=== PATIENT | female | born 1985 | race Caucasian/White ===

== ENCOUNTER 2020-01-18 08:00 | Outpatient (CLI) | payer OTHER | END 2020-01-18 23:59 | disposition home or self-care (01) | LOC: COV 08:00 | PROVIDERS: ATTEND Family Medicine | DX: R05 Cough (principal); R53.83 Other fatigue; J02.9 Acute pharyngitis, unspecified; R09.81 Nasal congestion; Z20.828 Contact with and (suspected) exposure to other viral communicable diseases ==

== ENCOUNTER 2023-03-05 10:46 | Outpatient (CLI) | payer OTHER ==
--- NOTE | 2023-03-05 11:49 | XRAY Report ---
PROCEDURE: Hand 3 View BILAT INDICATIONS: XRAY TECHNIQUE: 3 views of the bilateral hand(s) acquired. COMPARISON: None. FINDINGS: Bones: No fractures or dislocations. No suspicious bony lesions. Soft tissues: No suspicious soft tissue calcifications or masses. IMPRESSION: No acute bony abnormality. Reviewed by: Vicente Christina MD on 03/05/2023 11:48 AM [facility] Approved by: Vicente Christina MD on 03/05/2023 11:48 AM [facility] Station ID: [id number]
--- NOTE | 2023-03-05 11:50 | XRAY Report ---
PROCEDURE: Wrist 3 View BILAT INDICATIONS: XRAY TECHNIQUE: 3 views of the bilateral wrists were acquired. COMPARISON: None. FINDINGS: Bones: No fractures or dislocations. No suspicious bony lesions. Soft tissues: No suspicious soft tissue calcifications or masses. IMPRESSION: No acute bony abnormality. If pain persists with conservative management, consider repeat x-ray in 10 -14 days or cross-sectional imaging. Reviewed by: Vicente Christina MD on 03/05/2023 11:49 AM [facility] Approved by: Vicente Christina MD on 03/05/2023 11:49 AM [facility] Station ID: [id number]
== END 2023-03-05 10:47 | disposition home or self-care (01) ==
LOC: DI.S 10:46
PROVIDERS: ATTEND Physician Assistant
DX: M25.531 Pain in right wrist (principal); M25.532 Pain in left wrist